=== PATIENT | male | born 1965 | race Hispanic/Latino ===

== ENCOUNTER 2017-08-25 21:52 | Emergency (ER) | payer SELFPAY ==
[~2017-08-25 21:52] MED LIST: ASPI-555 PO; LISI-613 PO; METO50TA9 PO; PRAV20TA4 PO
[2017-08-25] MEDS ORDERED: LISINOPRIL 5 MG TABLET ONE (22:25)
[2017-08-25] MEDS ORDERED: KETOROLAC TROMETHAMINE 30MG/ML ONE (22:25)
[2017-08-25 23:06] LABS: RAPID GROUP A STREP NEGATIVE (NEGATIVE)
== END 2017-08-25 23:29 | disposition home or self-care (01) ==
LOC: EDH 21:52
DX: J11.1 Influenza due to unidentified influenza virus with other respiratory manifestations (principal); I10 Essential (primary) hypertension; E78.5 Hyperlipidemia, unspecified; R19.7 Diarrhea, unspecified; Z88.0 Allergy status to penicillin
CPT/HCPCS: 71046; 87804 ×2; 87880; 96372; 99285; J1885

== ENCOUNTER 2018-06-21 20:06 | Emergency (ER) | payer BC, OTHER ==
[2018-06-21 20:44] LABS: BASOPHILS % (AUTO) 1.2 % (0.0-5.0); EOSINOPHILS % (AUTO) 2.6 % (0.0-8.0); LYMPHOCYTES % (AUTO) 39.2 % (21.0-51.0); MEAN CORPUSCULAR HEMOGLOBIN 29.6 pg (27.0-33.0); MEAN CORPUSCULAR HGB CONC 34.2 g/dL (32.0-36.0); MEAN CORPUSCULAR VOLUME 86.7 fL (79-99); NUCLEATED RED BLOOD CELLS 0.1 % (0.0-0.19); PLATELET COUNT (AUTO) 309 K/uL (130-400); WHITE BLOOD COUNT (AUTO) 8.3 K/uL (4.8-10.8)
[2018-06-21 20:57] LABS: CREATININE 1.3 mg/dL (0.5-1.5); POTASSIUM 3.9 mmol/L (3.5-5.1)
[2018-06-21 21:02] LABS: ALBUMIN 3.8 g/dL (3.5-5.0); BILIRUBIN,TOTAL 0.4 mg/dL (0.2-1.0); TOTAL PROTEIN, SERUM 8.1 g/dL (6.0-8.3)
[2018-06-21] MEDS ORDERED: IPRATROPIUM/ALBUTEROL SULFATE 3 ML SOLUTION IH ONE ×2 (21:08→22:38)
[2018-06-21] MEDS ORDERED: KETOROLAC TROMETHAMINE 15MG/ML ONE (21:58)
== END 2018-06-21 23:58 | disposition home or self-care (01) ==
LOC: EDH 20:06
DX: J20.9 Acute bronchitis, unspecified (principal); I10 Essential (primary) hypertension; E78.5 Hyperlipidemia, unspecified; Z88.0 Allergy status to penicillin; Z98.890 Other specified postprocedural states
CPT/HCPCS: 36415; 71045; 80053; 84484 ×2; 85025; 87804 ×2; 93005 ×2; 94640 ×2; 96374; 99285; J1885

== ENCOUNTER 2022-01-28 22:52 | Emergency (ER) | payer BC, OTHER ==
[~2022-01-28] VITALS: Ht 180.3 cm; Wt 84.8 kg
[~2022-01-28 22:52] MED LIST changes: -ASPI-555 PO; +ASPI-556 PO; -LISI-613 PO; +LISI20TA24 PO
[2022-01-28] MEDS ORDERED: ACETAMINOPHEN 500 MG TABLET ONE (23:07)
[2022-01-28 23:16] LABS: BASOPHILS % (AUTO) 0.2 % (0.0-5.0); EOSINOPHILS % (AUTO) 0.8 % (0.0-8.0); HEMATOCRIT 42.9 % (42-54); LYMPHOCYTES % (AUTO) 9.3 % (21.0-51.0); MEAN CORPUSCULAR HEMOGLOBIN 28.7 pg (27.0-33.0); MEAN CORPUSCULAR VOLUME 84.3 fL (79-99); MONOCYTES % (AUTO) 5.3 % (3.0-13.0); NEUTROPHILS % (AUTO) 83.9 % (40.0-77.0); PLATELET COUNT (AUTO) 219 K/uL (130-400); RED BLOOD CELL COUNT(AUTO) 5.09 MIL/uL (4.50-6.20); RED CELL DISTRIBUTION WIDTH 13.2 % (11.0-15.5); WHITE BLOOD COUNT (AUTO) 13.3 K/uL (4.8-10.8)
[2022-01-28] MEDS ORDERED: ACETAMINOPHEN 500 MG TABLET PO ONE (23:30)
[2022-01-28] MEDS ORDERED: ONDANSETRON 4MG INJ IVP ONE (23:30)
[2022-01-28] MEDS ORDERED: 0.9%NACL 1000ML 1,000 ML IV SCH (23:30)
[2022-01-28 23:34] LABS: CREATININE 1.5 mg/dL (0.5-1.5); POTASSIUM 3.6 mmol/L (3.5-5.1)
[2022-01-28 23:39] LABS: ALBUMIN 3.5 g/dL (3.5-5.0); TOTAL PROTEIN, SERUM 7.5 g/dL (6.0-8.3)
[2022-01-28] MEDS ORDERED: LEVOFLOXACIN 500 MG TABLET PO SCH (23:45)
[2022-01-29] MEDS ORDERED: ONDA4TAB10 PO (00:48)
[2022-01-29] MEDS ORDERED: LOPE2CAP PO (00:48)
[2022-01-29] MEDS ORDERED: IBUP-2071 PO (00:48)
[2022-01-29] MEDS ORDERED: CIPR-278 PO (00:48)
[2022-01-29 00:53] VITALS: BP 122/82
== END 2022-01-29 01:36 | disposition home or self-care (01) ==
LOC: EDH 22:52
DX: B34.9 Viral infection, unspecified (principal); K52.9 Noninfective gastroenteritis and colitis, unspecified; Z20.822 Contact with and (suspected) exposure to COVID-19; E11.9 Type 2 diabetes mellitus without complications; E78.00 Pure hypercholesterolemia, unspecified; I10 Essential (primary) hypertension; Z88.0 Allergy status to penicillin; Z79.82 Long term (current) use of aspirin; Z79.899 Other long term (current) drug therapy; Z98.890 Other specified postprocedural states
CPT/HCPCS: 99284; 96374; 96361; 87635; 84484; 80053; 85025; 87040 ×2; 87804 ×2; 83605; 36415 ×2; 93005; C9803; J7030; J2405

== ENCOUNTER 2022-06-24 01:03 | Emergency (ER) | payer BC, OTHER ==
[~2022-06-24] VITALS: Ht 180.3 cm; Wt 79.4 kg
[~2022-06-24 01:03] MED LIST changes: +CIPR-278 PO; +IBUP-2071 PO; +LOPE2CAP PO; +ONDA4TAB10 PO
[2022-06-24 01:47] LABS: BASOPHILS % (AUTO) 0.7 % (0.0-5.0); EOSINOPHILS % (AUTO) 1.5 % (0.0-8.0); HEMATOCRIT 36.3 % (42-54); LYMPHOCYTES % (AUTO) 52.7 % (21.0-51.0); MEAN CORPUSCULAR HEMOGLOBIN 27.1 pg (27.0-33.0); MEAN CORPUSCULAR HGB CONC 32.8 g/dL (32.0-36.0); MEAN CORPUSCULAR VOLUME 82.7 fL (79-99); MONOCYTES % (AUTO) 7.8 % (3.0-13.0); NEUTROPHILS % (AUTO) 37.1 % (40.0-77.0); PLATELET COUNT (AUTO) 417 K/uL (130-400); RED BLOOD CELL COUNT(AUTO) 4.39 MIL/uL (4.50-6.20); RED CELL DISTRIBUTION WIDTH 13.2 % (11.0-15.5); WHITE BLOOD COUNT (AUTO) 8.4 K/uL (4.8-10.8)
[2022-06-24 01:57] LABS: CREATININE 1.1 mg/dL (0.5-1.5); POTASSIUM 3.9 mmol/L (3.5-5.1)
[2022-06-24 02:01] LABS: ALBUMIN 3.1 g/dL (3.5-5.0); CRP QUANTITATIVE 50.1 mg/L (0.00-9.0); TOTAL PROTEIN, SERUM 8.3 g/dL (6.0-8.3)
[2022-06-24] MEDS ORDERED: HYDROCODONE/ACETAMINOPHEN 5/325 MG TAB PO ONE (03:00)
[2022-06-24] MEDS ORDERED: KETOROLAC 60 MG VIAL (30MG/ML) IM ONE (03:00)
[2022-06-24] MEDS ORDERED: MORPHINE 4 MG SYG IM ONE (04:30)
[2022-06-24] MEDS ORDERED: GABA-529 PO (07:27)
[2022-06-24] MEDS ORDERED: IBUP-2070 PO (07:27)
[2022-06-24] MEDS ORDERED: ACET-2079 PO (07:27)
[2022-06-24 08:25] VITALS: BP 134/78
== END 2022-06-24 08:26 | disposition home or self-care (01) ==
LOC: EDH 01:03
DX: M25.472 Effusion, left ankle (principal); E11.9 Type 2 diabetes mellitus without complications; E78.00 Pure hypercholesterolemia, unspecified; I10 Essential (primary) hypertension; Z79.82 Long term (current) use of aspirin; Z88.0 Allergy status to penicillin; Z79.899 Other long term (current) drug therapy; Z20.822 Contact with and (suspected) exposure to COVID-19
CPT/HCPCS: 99284; 93970; 87635; 83735; 80053; 85025; 87804 ×2; 86140; 36415; 73600 ×2; 73620 ×2; 73562 ×2; 96372; C9803; J2270; J1885

== ENCOUNTER → 2023-05-06 | Outpatient (CLI) | payer OTHER ==
[~2023-05-06] MED LIST changes: +ACET-2079 PO; +GABA-529 PO; +IBUP-2070 PO
== END | disposition home or self-care (01) ==
LOC: OIH 12:58
PROVIDERS: ATTEND Internal Medicine Cardiovascular Disease
DX: Z13.6 Encounter for screening for cardiovascular disorders (principal)
CPT/HCPCS: 75571

== ENCOUNTER 2024-10-12 15:59 | Observation (INO) | payer BC ==
[~2024-10-12] VITALS: Ht 180.3 cm; Wt 81.9 kg
[~2024-10-12 15:59] MED LIST changes: +ONDA-243 PO; -ONDA4TAB10 PO
--- NOTE | 2024-10-12 16:42 | ERN ---
General Chief Complaint: Rectal Bleed Stated Complaint: RECTAL BLOOD Time Seen by MD: 16:02 Source: patient History of Present Illness Initial Comments Patient is a 59-year-old male coming in to be evaluated for lower abdominal pain. Patient states that the pain has been ongoing for two weeks two days ago he started having bloody stools. Allergies: Coded Allergies: Penicillins (Unverified Allergy, Unknown, UNKNOWN, 10/06/15) HAPPENED A CHILD Home Meds Active Scripts Gabapentin (Gabapentin) 100 Mg Capsule, 100 MG PO TID PRN for PAIN, #30 CAP 0 Refills Prov:LUCINA NOLASCO MD 06/24/22 Ibuprofen (Ibuprofen) 600 Mg Tablet, 600 MG PO Q6H PRN for PAIN, #30 TAB 0 Refills Prov:LUCINA NOLASCO MD 06/24/22 Acetaminophen with Codeine (Acetaminophen-Cod #3 Tablet) 1 Each Tablet, 1-2 TAB PO Q4H PRN for PAIN, #20 TAB 0 Refills Prov:LUCINA NOLASCO MD 06/24/22 Loperamide HCl (Loperamide) 2 Mg Capsule, 2 MG PO 5XDAY for diarrhea, #10 CAP 0 Refills Take 2 tablets initially and then 1 tablet with every loose bowel movement. Prov:ESTEPHANIA BIGGS MD 01/29/22 Ondansetron (Ondansetron Odt) 4 Mg Tab.rapdis, 4 MG PO Q6HPRN PRN for nausea, #16 TAB 0 Refills Prov:ESTEPHANIA BIGGS MD 01/29/22 Ibuprofen (Ibuprofen) 800 Mg Tablet, 800 MG PO Q8H PRN for fever, #30 TAB 0 Refills Prov:ESTEPHANIA BIGGS MD 01/29/22 Ciprofloxacin HCl (Cipro) 500 Mg Tablet, 1 TAB PO BID for 10 Days, #20 TAB 0 Refills Prov:ESTEPHANIA BIGGS MD 01/29/22 Aspirin (Aspir 81) 81 Mg Tablet.dr, 81 MG PO DAILY, #100 TAB 12 Refills Prov:AMINA SAMPSON MD 11/07/16 Metoprolol Succinate (Toprol Xl) 50 Mg Tab.er.24h, 50 MG PO DAILY, #30 TAB 1 Refill Prov:AMINA SAMPSON MD 11/07/16 Lisinopril (Lisinopril) 20 Mg Tablet, 20 MG PO DAILY, #30 TAB 1 Refill Prov:AMINA SAMPSON MD 11/07/16 Reported Medications Pravastatin Sodium (Pravastatin Sodium) 20 Mg Tablet, 20 MG PO HS, TAB 11/26/15 Past Medical History Past Medical History: Diabetes-Type II, High Cholesterol, Hypertension Past Surgical History: Other Surgical History Other: NEPHROSTOMY TUBE; URINE STENT ROS Dictation CONSTITUTIONAL: No chills, no fever, no weakness, no diaphoresis, no malaise. HEAD/FACE: No signs of trauma. EENT: No eye pain, no blurred vision, no tearing, no double vision, no ear pain, no ear discharge, no nose pain, no nasal congestion, no throat pain, no throat swelling, no mouth pain. RESPIRATORY: No cough, no orthopnea, no SOB, no stridor, no wheezing. CARDIOVASCULAR: No chest pain, no edema, no palpitations, no syncope. GASTROINTESTINAL/ABDOMINAL: abdominal pain, no constipation, no diarrhea, no nausea, no vomiting. GENITOURINARY: No abnormal discharge, no dysuria, no frequent urination, no hematuria. No complaints of pain in the genitals. MUSCULOSKELETAL: No back pain, no gout, no joint pain, no joint swelling, no muscle pain, no muscle stiffness, no neck pain. INTEGUMENTARY: No change in color, no change in hair/nails, no dryness, no lesion, no lumps, no rash. NEUROLOGICAL/PSYCH: No anxiety, not depressed, no emotional problem, no headache, no numbness, no pre-existing deficit, no history of seizures, no tremors, no weakness. HEMATOLOGIC/LYMPHATIC: Not anemic, no history of blood clots, no apparent bleeding, no bruising, glands not swollen. All Systems Negative, Except as Noted. Physical Exam Physical Exam Dictation VITAL SIGNS: Reviewed. GENERAL APPEARANCE: Alert, oriented x3, no acute distress, obese. HEAD AND FACE: Non-traumatic. EYES: PERRL, pink conjunctivas, eyelid no trauma, anterior chamber clear. EARS: Pinnas intact and no signs of trauma or erythema. Ear canals clear and no discharge. TMs no erythema. NOSE: No discharge, no bleeding. OROPHARYNX: Mouth normal, teeth no caries, tongue pink. Pharynx clear, no erythema. Tonsils no exudates, no abscesses noted. Mucous membrane moist. NECK: Supple, non-tender, no thyromegaly, no masses, no JVD, no bruits. BREAST: Deferred. CHEST: No tenderness, no crepitus, no paradoxical movement, no retractions. LUNGS: Clear, well-ventilated, symmetric, no rales, no wheezing, no rhonchi, no stridor, good breath sounds bilaterally. HEART: Regular rate, regular rhythm, no murmur, no gallops. VASCULAR: No peripheral edema. ABDOMEN: Soft, positive bowel sounds, nondistended, no guarding, nontender, no rebound, no masses no hepatomegaly, no splenomegaly, no Benjamin's sign, no hernias. RECTAL: Deferred. GENITAL: Deferred. NEUROLOGICAL: Normal speech, gross motor function intact, gross sensory function intact. MUSCULOSKELETAL: Neck nontender, full range of motion, back nontender, full range of motion. EXTREMITIES: Nontender, full range of motion. SKIN: Color pink, dry, no turgor, no rash, no lacerations, no abrasions, no contusions. LYMPHATICS: Deferred. Results Laboratory and Microbiology Lab and Micro Result Laboratory Tests Test 10/12/24 16:47 10/12/24 17:04 10/12/24 17:25 White Blood Count 11.4 K/uL (4.8-10.8) H Red Blood Count 5.21 MIL/uL (4.50-6.20) Hemoglobin 14.8 g/dL (14.0-18.0) Hematocrit 44.4 % (42-54) Mean Corpuscular Volume 85.2 fL (79-99) Mean Corpuscular Hemoglobin 28.4 pg (27.0-33.0) Mean Corpuscular Hemoglobin Concent 33.3 g/dL (32.0-36.0) Red Cell Distribution Width 12.9 % (11.0-15.5) Platelet Count 257 K/uL (130-400) Mean Platelet Volume 10.6 fL (7.5-10.5) H Immature Granulocyte % (Auto) 0.2 % (0-1) Neutrophils (%) (Auto) 32.0 % (40.0-77.0) L Lymphocytes (%) (Auto) 58.3 % (21.0-51.0) H Monocytes (%) (Auto) 7.1 % (3.0-13.0) Eosinophils (%) (Auto) 1.7 % (0.0-8.0) Basophils (%) (Auto) 0.7 % (0.0-5.0) Neutrophils # (Auto) 3.6 K/uL (1.8-7.7) Lymphocytes # (Auto) 6.6 K/uL (1.0-4.8) H Monocytes # (Auto) 0.8 K/uL (0.1-1.0) Eosinophils # (Auto) 0.19 K/uL (0.00-0.70) Basophils # (Auto) 0.08 K/uL (0.00-0.20) Absolute Immature Granulocyte (auto 0.02 K/uL (0-1) Segmented Neutrophils % 28 % (40-70) L Band Neutrophils % 2 % (0-2) Lymphocytes % (Manual) 42 % (22-44) Monocytes % (Manual) 3 % (2-9) Eosinophils % (Manual) 1 % (1-6) Nucleated Red Blood Cells 0.0 % (0.0-0.19) Differential Comment MANUAL DIFFERENTIAL Reactive Lymphocytes 24 % (0-0) H White Cell Morphology Comment Platelet Morphology Comment Red Blood Cell Morphology See comments Sodium Level 137 mmol/L (136-145) Potassium Level 3.8 mmol/L (3.5-5.1) Chloride Level 98 mmol/L (101-111) L Carbon Dioxide Level 32 mmol/L (21-32) Blood Urea Nitrogen 21 mg/dL (7-18) H Creatinine 1.2 mg/dL (0.5-1.3) Glomerular Filtration Rate Calc 71 mL/min (>90) Random Glucose 100 mg/dL (70-105) Total Calcium 9.1 mg/dL (8.5-10.1) Urine Color LIGHT-YELLOW (YELLOW) Urine Appearance CLEAR (CLEAR) Urine pH 6.5 (5.0-8.0) Urine Specific [place] 1.032 (1.001-1.031) Urine Protein NEGATIVE mg/dL (NEGATIVE) Urine Glucose (UA) >=1000 mg/dL (NEGATIVE) H Urine Ketones 5 mg/dL (NEGATIVE) H Urine Occult Blood NEGATIVE (NEGATIVE) Urine Nitrate NEGATIVE (NEGATIVE) Urine Bilirubin NEGATIVE mg/dL (NEGATIVE) Urine Urobilinogen 0.2 mg/dL (0.2-1.0) Urine Leukocyte Esterase NEGATIVE Celio/uL Urine RBC None /HPF (0-1) Urine WBC 0-1 /HPF (0-1) Urine Bacteria None /HPF (None Seen) Stool Occult Blood POSITIVE (NEGATIVE) H Labs Reviewed?: Yes EKG/XRAY/US/CT/MRI CT Scan Comment [facility] [address] [place] [address] IMAGING REPORT Signed PATIENT: DANILO BELTRE MR#: [id number] : 1965 SEX: M AGE: 59 LOCATION: [facility] ORDER 55 STATUS: [facility] REPORT#: [id number] SERVICE 54 REASON: lower abd pain ORDERING PHYSICIAN: REBECCA SHERMAN MD PROCEDURE: ABD PEL W - CT ABDOMEN/PELVIS W/CONTRAST CT ABDOMEN WITH CONTRAST. CT PELVIS WITH CONTRAST INDICATION: Lower abdominal pain, nausea, cramping, bright red blood per stool TECHNIQUE: Routine transaxial images using 5 mm slice thickness were obtained after the intravenous infusion of 75 mL of Omnipaque 350 without adverse effects. Oral contrast was not administered. Rectal contrast was not administered. Coronal and sagittal reformatted images acquired for interpretation. CT was performed with one or more of the following dose reduction techniques: Automated exposure control, adjustment of the mA and/or kV according to patient size, or use of iterative reconstruction technique. COMPARISON: None FINDINGS: ABDOMEN: Heart size is normal. Visible lung bases are clear. The liver is normal in size and smooth in contour without lesions or biliary duct dilation. The spleen is normal in size without lesions. The gallbladder appears normal. The pancreas appears normal without pancreatic duct dilation. The adrenal glands appear normal. Right kidney appears normal. 2 mm punctate nonobstructing stones at the lower portion of the left kidney. Cortical nephrograms are symmetric and normal in appearance bilaterally. No evidence for intra-abdominal free air or organized fluid collection. No retrocrural, intraabdominal, or retroperitoneal lymphadenopathy identified. Mild calcific plaque is noted along the abdominal aortic and iliac vessel ramirez without aneurysmal dilation or dissection. Tiny fat-containing nonobstructing umbilical hernia. PELVIS: No evidence for free air or organized pelvic fluid collection. No significant pelvic adenopathy detected. Visualized small and large bowel loops appear unremarkable. Terminal ileum appears normal. The appendix appears normal. The urinary bladder appears unremarkable. Prostate gland measures 5.2 x 3.9 cm. Visible osseous structures are intact. IMPRESSION: Nonobstructing left nephrolithiasis. Tiny fat-containing nonobstructing umbilical hernia. DICTATED BY: MANNY LAM MD DATE: 10/12/241847 ELECTRONICALLY SIGNED BY: MANNY LAM MD DATE: 10/12/241857 MDM MDM: DIFFERENTIAL DIAGNOSIS: GI BLEED, ABDOMINAL DISCOMFORT, RATIONALE: TESTS CONSIDERED AND ORDERED SECONDARY TO SHARED DECISION MAKING INCLUDE: LABS, ECG AND RADIOLOGY PREVIOUS OUTSIDE RECORDS REVIEWED: OLD ER VISITS. RISK OF COMPLICATION AND/OR MORBIDITY OR MORTALITY OF PATIENT MANAGEMENT: NONE MEDICATIONS-PER MEDICATION RECONCILIATION NEED FOR HOSPITALIZATION: PATIENT DOES MEET CRITERIA FOR HOSPITALIZATION. NEED FOR EMERGENCY MAJOR/MINOR SURGERY: NO THERE ARE NO SOCIAL CONCERNS WITH THIS PATIENT. PRESCRIPTION DRUG MANAGEMENT PRESCRIPTIONS WILL INCLUDE SYMPTOMATIC CARE PATIENT'S PRIOR EXTERNAL MEDICAL RECORDS FROM OTHER ER VISITS WERE REVIEWED BY ME INDICATED. PRIOR TESTING AND RESULTS FROM PREVIOUS VISITS WERE REVIEWED. PRIOR TESTS WERE TAKEN INTO ACCOUNT WITH MEDICAL DECISION MAKING AND RESOURCE UTILIZATION, INDEPENDENT HISTORIAN/HISTORIANS WERE USED TO OBTAIN COMPLETE MEDICAL HISTORY. I INDEPENDENTLY INTERPRETED THE TEST THAT WERE PERFORMED, RESULTS WERE REVIEWED BY ME AND CONSIDERED FINDINGS ON RADIOLOGY IF ORDERED. MEDICAL MANAGEMENT AND EXAMINATION INTERPRETATION DISCUSSIONS WERE HAD BY ME WITH OTHER QUALIFIED HEALTHCARE PROFESSIONALS INDICATED FOR THE PATIENT'S CARE. SHE WILL BE ADMITTED UNDER THE CARE OF DR. Cruz FOR ONGOING EVALUATION AND MANAGEMENT OF GI BLEED. ED Course Orders Procedure Category Date Status Time Cbc With Differential LAB 10/12/24 In Process 16:37 Basic Metabolic Panel LAB 10/12/24 Complete 16:37 Urinalysis LAB 10/12/24 Complete W/Microscopic 16:37 Occult Blood Stool LAB 10/12/24 Complete Single Only 16:37 Manual Differential LAB 10/12/24 In Process 16:47 Ct Abdomen/Pelvis CT 10/12/24 Resulted W/Contrast 17:55 Iohexol (Omnipaque) PHA 10/12/24 Complete 18:02 Pantoprazole 40mg Inj PHA 10/12/24 Logged (Protonix 40mg Inj 19:30 Current Medications Medications (Trade) Dose Ordered Sig/Iar Route PRN Reason Start Time Stop Time Status Last Admin Dose Admin Iohexol (Omnipaque) 75 ml STK-MED ONCE IV 10/12/24 18:02 10/12/24 18:03 DC Pantoprazole Sodium (PROTonix 40MG INJ) 80 mg ONCE ONCE IVP 10/12/24 19:30 10/12/24 19:31 UNV Vital Signs Date Time Temp Pulse Resp B/P (MAP) Pulse Ox O2 Delivery O2 Flow Rate FiO2 10/12/24 18:32 98.1 65 18 121/59 98 Room Air* 0 21 10/12/24 18:29 98.1 69 18 133/67 97 Room Air* 0 21 10/12/24 16:01 98.1 69 18 133/67 97 Room Air DX & DISP Disposition: Inpatient Decision to Admit Time: 19:06 Departure Impression: Primary Impression: GI bleed Condition: Stable Referrals: JUMA TRAN MD (PCP) REBECCA SHERMAN MD Oct 12, 2024 16:42
[2024-10-12 16:55] LABS: BASOPHILS # (AUTO) 0.08 K/uL (0.00-0.20); BASOPHILS % (AUTO) 0.7 % (0.0-5.0); EOSINOPHILS # (AUTO) 0.19 K/uL (0.00-0.70); EOSINOPHILS % (AUTO) 1.7 % (0.0-8.0); HEMATOCRIT 44.4 % (42-54); IMMATURE GRANULOCYTE ABSOLUTE 0.02 K/uL (0-1); LYMPHOCYTES # (AUTO) 6.6 K/uL (1.0-4.8); LYMPHOCYTES % (AUTO) 58.3 % (21.0-51.0); MEAN CORPUSCULAR HEMOGLOBIN 28.4 pg (27.0-33.0); MEAN CORPUSCULAR HGB CONC 33.3 g/dL (32.0-36.0); MEAN CORPUSCULAR VOLUME 85.2 fL (79-99); MONOCYTES # (AUTO) 0.8 K/uL (0.1-1.0); MONOCYTES % (AUTO) 7.1 % (3.0-13.0); NEUTROPHILS # (AUTO) 3.6 K/uL (1.8-7.7); PLATELET COUNT (AUTO) 257 K/uL (130-400); RED BLOOD CELL COUNT(AUTO) 5.21 MIL/uL (4.50-6.20); RED CELL DISTRIBUTION WIDTH 12.9 % (11.0-15.5); WHITE BLOOD COUNT (AUTO) 11.4 K/uL (4.8-10.8)
[2024-10-12 17:02] LABS: CREATININE 1.2 mg/dL (0.5-1.3); POTASSIUM 3.8 mmol/L (3.5-5.1)
[2024-10-12 17:13] LABS: APPEARANCE,URINE CLEAR (CLEAR); BILIRUBIN,URINE NEGATIVE (NEGATIVE); COLOR,URINE LIGHT-YELLOW (YELLOW); GLUCOSE, URINE (UA) >=1000 mg/dL (NEGATIVE); KETONES,URINE 5 mg/dL (NEGATIVE); LEUKOCYTE ESTERASE ,URINE NEGATIVE Leu/uL (NEGATIVE); NITRATE,URINE NEGATIVE (NEGATIVE); OCCULT BLOOD,URINE NEGATIVE (NEGATIVE); PH,URINE 6.5 (5.0-8.0); PROTEIN,URINE NEGATIVE (NEGATIVE); UROBILINOGEN,URINE 0.2 mg/dL (0.2-1.0)
[2024-10-12 17:14] LABS: WBC,URINE 0-1 /HPF (0-1)
[2024-10-12 17:27] LABS: BAND NEUTROPHILS % (MANUAL) 2 % (0-2); EOSINOPHILS % (MANUAL) 1 % (1-6); LYMPHOCYTES % (MANUAL) 42 % (22-44); MAN.DIFF COMMENT-IMPRESSION MANUAL DIFFERENTIAL; MONOCYTES % (MANUAL) 3 % (2-9); REACTIVE LYMPHOCYTES 24 % (0-0); SEGMENTED NEUTROPHILS % 28 % (40-70); TOTAL CELLS COUNTED 100
[2024-10-12] MEDS ORDERED: IOHEXOL-350 75 ML VIAL IV ONE (18:02)
--- NOTE | 2024-10-12 18:58 | HMCIMG ---
CT ABDOMEN WITH CONTRAST. CT PELVIS WITH CONTRAST INDICATION: Lower abdominal pain, nausea, cramping, bright red blood per stool TECHNIQUE: Routine transaxial images using 5 mm slice thickness were obtained after the intravenous infusion of 75 mL of Omnipaque 350 without adverse effects. Oral contrast was not administered. Rectal contrast was not administered. Coronal and sagittal reformatted images acquired for interpretation. CT was performed with one or more of the following dose reduction techniques: Automated exposure control, adjustment of the mA and/or kV according to patient size, or use of iterative reconstruction technique. COMPARISON: None FINDINGS: ABDOMEN: Heart size is normal. Visible lung bases are clear. The liver is normal in size and smooth in contour without lesions or biliary duct dilation. The spleen is normal in size without lesions. The gallbladder appears normal. The pancreas appears normal without pancreatic duct dilation. The adrenal glands appear normal. Right kidney appears normal. 2 mm punctate nonobstructing stones at the lower portion of the left kidney. Cortical nephrograms are symmetric and normal in appearance bilaterally. No evidence for intra-abdominal free air or organized fluid collection. No retrocrural, intraabdominal, or retroperitoneal lymphadenopathy identified. Mild calcific plaque is noted along the abdominal aortic and iliac vessel ramirez without aneurysmal dilation or dissection. Tiny fat-containing nonobstructing umbilical hernia. PELVIS: No evidence for free air or organized pelvic fluid collection. No significant pelvic adenopathy detected. Visualized small and large bowel loops appear unremarkable. Terminal ileum appears normal. The appendix appears normal. The urinary bladder appears unremarkable. Prostate gland measures 5.2 x 3.9 cm. Visible osseous structures are intact. IMPRESSION: Nonobstructing left nephrolithiasis. Tiny fat-containing nonobstructing umbilical hernia.
[2024-10-12] MEDS: PANTOPrazole 40 MG/VIAL IVP ONE (20:37)
[2024-10-12] MEDS: acetaMINOPHEN 325 MG TAB PO PRN (20:51)
[2024-10-12] MEDS: acetaMINOPHEN 325 MG TAB ONE (20:53)
[2024-10-12 21:20] VITALS: BP 133/66; PULSE 60; RESP 18; TEMP 97.6; O2SAT 97
[2024-10-12 22:59] LABS: HEMATOCRIT 41.5 % (42-54)
[2024-10-12 23:46] VITALS: BP 111/49; PULSE 59; RESP 17; TEMP 97.7
[2024-10-13] MEDS ORDERED: TIZA-211 PO (01:44)
[2024-10-13] MEDS ORDERED: EMPA25TA PO (01:44)
[2024-10-13] MEDS ORDERED: SEMA1PEN3 SQ (01:44)
[2024-10-13] MEDS ORDERED: HYDR-3422 PO (01:44)
[2024-10-13] MEDS ORDERED: ROSU10TA72 PO (01:44)
[2024-10-13] MEDS ORDERED: GLIPIZIDE (01:44)
[2024-10-13] MEDS ORDERED: TELM1TAB42 PO (01:44)
[2024-10-13 04:00] VITALS: BP 105/53; PULSE 61; RESP 17; TEMP 97.5
[2024-10-13 04:32] LABS: HEMATOCRIT 43.2 % (42-54)
[2024-10-13 08:00] VITALS: BP 112/71; PULSE 78; RESP 18; TEMP 97.3; O2SAT 97
[2024-10-13] MEDS: PANTOPrazole 40 MG/VIAL IVP SCH (08:32)
[2024-10-13] MEDS: hydroCORTISONE 25 MG SUPPOSITORY PR SCH (08:32)
--- NOTE | 2024-10-13 08:58 | CONS ---
GASTROENTEROLOGY CONSULTATION NOTE Date of Consultation: Oct 13, 2024 Time of Consultation: 08:57 History of Present Illness: [ ] Review of Systems: CONSTITUTIONAL: No malaise or change in sensation of wellbeing. ENMT: No rhinorrhea, otorrhea, sinus pain, ear ache. CARDIOVASCULAR: No angina, palpitations, orthopnea or paroxysmal dyspnea. RESPIRATORY: No SOB. GASTROINTESTINAL: No abdominal pain, nausea, vomiting, diarrhea, hematemesis, melena or change in the patient's habitual bowel movements consistency/number. GENITOURINARY: No dysuria, hematuria or change in bladder continence. MUSCULOSKELETAL: No new muscle pain or decrease in muscular strength. No new joint swelling, redness or tenderness. SKIN: No new rash. Past Medical History: [ ] Past Surgical History: [ ] Past Social History: [ ] Family History: [ ] Coded Allergies: Penicillins (Unverified Allergy, Unknown, UNKNOWN, 10/06/15) HAPPENED A CHILD Physical Exam: GEN: Awake, alert, oriented in person, time and place, and in no acute distress. HEENT: No sinus tenderness. Tympanic membranes were not examined. No rhinorrhea. Oral pharyngeal mucosa is pink, moist and within normal limits. Neck is supple with no cervical lymphadenopathy, thyromegaly or JVD. CHEST: Inspection, palpation and percussion of the chest were unremarkable. Lung auscultation revealed normal breath sounds bilaterally. CARDIAC: PMI is within normal limits. Heart sounds are regular. Normal S1, S2. No gallop or murmur. ABD: Soft, non-tender and not distended. No peritoneal signs on palpation. No organomegaly. Normal bowel sounds. EXT: No cyanosis or clubbing. No edema. SKIN: Intact. No rashes. JOINTS: No evidence of synovitis or acute arthritis. NEURO: Alert and oriented to name, place and person. Cranial nerve examination is unremarkable. No focal motor deficits. Normal speech. Gait is normal. Strength is normal. Vital Sign (Last 24 Hours) 10/12/24 10/13/24 21:20 04:00 Temp 97.5 Pulse 61 Resp 17 B/P (MAP) 105/53 Pulse Ox 96 O2 Delivery Room Air O2 Flow Rate 0 FiO2 21 Laboratory: [ ] Laboratory: Test 10/13/24 05:17 10/13/24 04:09 10/12/24 17:25 10/12/24 17:04 Range/Units Whole Blood Glucose 124 H 70-110 MG/DL Hemoglobin 14.5 14.0-18.0 g/dL Hematocrit 43.2 42-54 % Stool Occult Blood POSITIVE H NEGATIVE Urine Color LIGHT-YELLOW YELLOW Urine Appearance CLEAR CLEAR Urine pH 6.5 5.0-8.0 Urine Specific [place] 1.032 H 1.001-1.031 Urine Protein NEGATIVE NEGATIVE mg/dL Urine Glucose (UA) >=1000 H NEGATIVE mg/dL Urine Ketones 5 H NEGATIVE mg/dL Urine Occult Blood NEGATIVE NEGATIVE Urine Nitrate NEGATIVE NEGATIVE Urine Bilirubin NEGATIVE NEGATIVE mg/dL Urine Urobilinogen 0.2 0.2-1.0 mg/dL Urine Leukocyte Esterase NEGATIVE NEGATIVE Celio/uL Urine RBC None 0-1 /HPF Urine WBC 0-1 0-1 /HPF Urine Bacteria None None Seen /HPF Test 10/12/24 16:47 Range/Units White Blood Count 11.4 H 4.8-10.8 K/uL Red Blood Count 5.21 4.50-6.20 MIL/uL Mean Corpuscular Volume 85.2 79-99 fL Mean Corpuscular Hemoglobin 28.4 27.0-33.0 pg Mean Corpuscular Hemoglobin Concent 33.3 32.0-36.0 g/dL Red Cell Distribution Width 12.9 11.0-15.5 % Platelet Count 257 130-400 K/uL Mean Platelet Volume 10.6 H 7.5-10.5 fL Immature Granulocyte % (Auto) 0.2 0-1 % Neutrophils (%) (Auto) 32.0 L 40.0-77.0 % Lymphocytes (%) (Auto) 58.3 H 21.0-51.0 % Monocytes (%) (Auto) 7.1 3.0-13.0 % Eosinophils (%) (Auto) 1.7 0.0-8.0 % Basophils (%) (Auto) 0.7 0.0-5.0 % Neutrophils # (Auto) 3.6 1.8-7.7 K/uL Lymphocytes # (Auto) 6.6 H 1.0-4.8 K/uL Monocytes # (Auto) 0.8 0.1-1.0 K/uL Eosinophils # (Auto) 0.19 0.00-0.70 K/uL Basophils # (Auto) 0.08 0.00-0.20 K/uL Absolute Immature Granulocyte (auto 0.02 0-1 K/uL Segmented Neutrophils % 28 L 40-70 % Band Neutrophils % 2 0-2 % Lymphocytes % (Manual) 42 22-44 % Monocytes % (Manual) 3 2-9 % Eosinophils % (Manual) 1 1-6 % Nucleated Red Blood Cells 0.0 0.0-0.19 % Differential Comment MANUAL DIFFERENTIAL Reactive Lymphocytes 24 H 0-0 % White Cell Morphology Comment Platelet Morphology Comment Red Blood Cell Morphology See comments Sodium Level 137 136-145 mmol/L Potassium Level 3.8 3.5-5.1 mmol/L Chloride Level 98 L 101-111 mmol/L Carbon Dioxide Level 32 21-32 mmol/L Blood Urea Nitrogen 21 H 7-18 mg/dL Creatinine 1.2 0.5-1.3 mg/dL Glomerular Filtration Rate Calc 71 >90 mL/min Random Glucose 100 70-105 mg/dL Total Calcium 9.1 8.5-10.1 mg/dL Current Medications Medications (Trade) Dose Ordered Sig/Ira Route PRN Reason Start Time Stop Time Status Last Admin Dose Admin Acetaminophen (TYLenol 325MG TAB) 650 mg Q6H PRN PO MILD PAIN (1-3) 10/12/24 21:00 11/11/24 20:59 10/12/24 20:51 650 MG Hydrocortisone Acetate (anuSOL-HC 25MG SUPP) 1 supp BID CA 10/13/24 09:00 11/12/24 08:59 10/13/24 08:32 1 SUPP Pantoprazole Sodium (PROTonix 40MG INJ) 40 mg DAILY IVP 10/13/24 09:00 11/12/24 08:59 10/13/24 08:32 40 MG Diagnostics / Radiology: [COPY/PASTE HERE IF NO REPORTS PLEASE DELETE SECTION] Assessment: [ ] Plan: [ ] DOUGIE APODACA [facility] Oct 13, 2024 08:57
[2024-10-13 11:29] LABS: HEMATOCRIT 44.5 % (42-54)
--- NOTE | 2024-10-13 11:51 | NUR ---
DCP -- Home Patient states lives with Ed Richter, Domestic Partner [phone] in a house with three step entrance and walk in shower. 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 States able to complete ADL's on his own. Denies medical devices. Denies home health services, home care provider or dialysis. PCP - Misty Meyers MD Pharmacy - [facility]. Upon discharge, Ed Richter, Domestic Partner [phone] and assist with care, as needed. Addendum: 10/13/24 at 1154 by ROSS STANLEY RN CM Amended: Links added.
[2024-10-13 12:00] VITALS: BP 106/48; PULSE 74; RESP 18; TEMP 97.6
--- NOTE | 2024-10-13 14:09 | NUR ---
DISCHARGE PIV DC'D AND BRACELETS REMOVED. REVIEWED DISCHARGE INSTRUCTIONS AND FOLLOW UP APPOINTMENTS WITH THE PT. ALL QUESTIONS ANSWERED AT THIS TIME. PT LEAVING FACILITY VIA WHEELCHAIR.
--- NOTE | 2024-10-13 17:13 | HP ---
HISTORY OF PRESENT ILLNESS: The patient of Dr. Meyers, came to the Emergency Room complaining of bright red blood per rectum for the last few days. ALLERGIES: HE IS ALLERGIC TO PENICILLIN. CURRENT MEDICATIONS: Gabapentin, ibuprofen, aspirin, metoprolol, lisinopril and pravastatin. PAST MEDICAL HISTORY: Type 2 diabetes, hypertension, dyslipidemia. PAST SURGICAL HISTORY: Status post nephrostomy tube placement. REVIEW OF SYSTEMS: No fever, chills, seizures or loss of consciousness. No diplopia, dysarthria, dysphonia or dysphagia. No chest pain, palpitations or dizziness. No cough, wheeze or rhonchi. No abdominal pain, no nausea, vomiting or diarrhea. No hematemesis, melena or hematuria. No rashes, petechiae or ecchymoses. No dysuria, urgency or frequency. No hallucinations or delusions, no suicidal ideation. PHYSICAL EXAMINATION: GENERAL: He is awake, alert, oriented in person, time, and place, not in distress. VITAL SIGNS: In the chart. HEENT: Normocephalic, atraumatic. PERRLA. [place] and moist oral mucosa. NECK: Supple, no jugular venous dilation, no carotid bruit, no goiter. HEART: S1, S2 are distant. ABDOMEN: Soft, nontender, no masses. EXTREMITIES: No clubbing or cyanosis, no edema. LABORATORY DATA: WBC count 11.4, hemoglobin 14.8, platelets 257. Potassium 3.8, sodium 137, BUN 21, creatinine 1.2. Urinalysis within normal limits. Glucose was more than 1000 mg in urine. Abdominal CT scan was reported as with a known obstructing left nephrolithiasis, prostate gland measuring 5.2 x 3.9. ASSESSMENT AND PLAN: Lower gastrointestinal bleeding. Continue to monitor H and H, transfuse on a p.r.n. basis. Start him on Protonix IV. Have him on IV fluids. Consultation with GI will be made. Continue with his home medications for other comorbidities. Hold all NSAIDs. The patient will be transferred to Dr. Meyers's service. DOS: 10/13/2024 TID: [id number] RECEIPT: [id number] [facility]
--- NOTE | 2024-10-13 22:06 | DS ---
Discharge Summary DIAGNOSE(S): Bright red blood per rectum] HOSPITAL COURSE SUMMARY: [Patient presented with scanty blood treat blood per rectum with no further worsening and stable hematocrit clinically assumed to be possibly hemorrhoidal bleed as it was painless and was advised to use hemorrhoidal suppository 2 times a day for two weeks and follow up as an outpatient for further workup and monitoring serial hematocrit] MILK COLLECTOR(S): [GI] PROCEDURE(S)/TREATMENT(S): [None] PROBLEM(S): [None] FOLLOW-UP TEST(S): [Follow up with CBC in 2-3 days] DISCHARGE INSTRUCTIONS: [Follow up with PCP in 1-2 days] Home Meds Reported Medications [Glipizide] No Conflict Check 10/13/24 Rosuvastatin Calcium (Rosuvastatin Calcium) 10 Mg Tablet, 1 TAB PO HS for 30 Days, #30 TAB 0 Refills 10/13/24 Telmisartan/Hydrochlorothiazid (Telmisartan-Hctz 80-12.5 mg Tb) 80 Mg-12.5 Mg Tablet, 1 TAB PO DAILY for 30 Days, #30 TAB 0 Refills 10/13/24 Tizanidine HCl (Tizanidine HCl) 4 Mg Tablet, 1 TAB PO BID for 30 Days, #60 TAB 0 Refills 10/13/24 Hydroxyzine HCl (Hydroxyzine HCl) 50 Mg Tablet, 1 TAB PO HS for anxiety for 30 Days, #30 TAB 0 Refills 10/13/24 Semaglutide (Ozempic) 1 Mg/0.75 Ml (4 Mg/3 Ml) Pen.injctr, 1 MG SQ QWEEK for 30 Days, #3 ML 0 Refills Q Thursday10/13/24 Empagliflozin (Jardiance) 25 Mg Tablet, 1 TAB PO DAILY for 30 Days, #30 TAB 0 Refills 10/13/24 Discontinued Reported Medications Pravastatin Sodium (Pravastatin Sodium) 20 Mg Tablet, 20 MG PO HS, TAB 11/26/15 Discontinued Scripts Gabapentin (Gabapentin) 100 Mg Capsule, 100 MG PO TID PRN for PAIN, #30 CAP 0 Refills Prov:LUCINA NOLASCO MD 06/24/22 Ibuprofen (Ibuprofen) 600 Mg Tablet, 600 MG PO Q6H PRN for PAIN, #30 TAB 0 Refills Prov:LUCINA NOLASCO MD 06/24/22 Acetaminophen with Codeine (Acetaminophen-Cod #3 Tablet) 1 Each Tablet, 1-2 TAB PO Q4H PRN for PAIN, #20 TAB 0 Refills Prov:LUCINA NOLASCO MD 06/24/22 Loperamide HCl (Loperamide) 2 Mg Capsule, 2 MG PO 5XDAY for diarrhea, #10 CAP 0 Refills Take 2 tablets initially and then 1 tablet with every loose bowel movement. Prov:ESTEPHANIA BIGGS MD 01/29/22 Ondansetron (Ondansetron Odt) 4 Mg Tab.rapdis, 4 MG PO Q6HPRN PRN for nausea, #16 TAB 0 Refills Prov:ESTEPHANIA BIGGS MD 01/29/22 Ibuprofen (Ibuprofen) 800 Mg Tablet, 800 MG PO Q8H PRN for fever, #30 TAB 0 Refills Prov:ESTEPHANIA BIGGS MD 01/29/22 Ciprofloxacin HCl (Cipro) 500 Mg Tablet, 1 TAB PO BID for 10 Days, #20 TAB 0 Refills Prov:ESTEPHANIA BIGGS MD 01/29/22 Aspirin (Aspir 81) 81 Mg Tablet.dr, 81 MG PO DAILY, #100 TAB 12 Refills Prov:AMINA SAMPSON MD 11/07/16 Metoprolol Succinate (Toprol Xl) 50 Mg Tab.er.24h, 50 MG PO DAILY, #30 TAB 1 Refill Prov:AMINA SAMPSON MD 11/07/16 Lisinopril (Lisinopril) 20 Mg Tablet, 20 MG PO DAILY, #30 TAB 1 Refill Prov:AMINA SAMPSON MD 11/07/16 JUMA TRAN MD Oct 13, 2024 22:06
== END 2024-10-13 14:05 | disposition home or self-care (01) ==
LOC: EDH 15:59 → INTOOBSV 20:03 → EDHIP 20:03 → 3AH 21:08
PROVIDERS: ADMIT Internal Medicine; ATTEND Internal Medicine
DX: K62.5 Hemorrhage of anus and rectum (principal); R10.30 Lower abdominal pain, unspecified; N20.0 Calculus of kidney; E11.9 Type 2 diabetes mellitus without complications; I10 Essential (primary) hypertension; E78.5 Hyperlipidemia, unspecified; Z88.0 Allergy status to penicillin; Z98.890 Other specified postprocedural states; Z79.899 Other long term (current) drug therapy
CPT/HCPCS: 96374; 99284; 80048; 85025; 85014 ×3; 85018 ×3; 82270; 81001; 36415 ×2; 74177; 96376; 82948; G0378 ×18; J2470 ×2; Q9967

== ENCOUNTER 2025-01-19 16:50 | Emergency (ER) | payer BC ==
[~2025-01-19] VITALS: Ht 180.3 cm; Wt 82.6 kg
[~2025-01-19 16:50] MED LIST changes: -ACET-2079 PO; -ASPI-556 PO; -CIPR-278 PO; +EMPA25TA PO; -GABA-529 PO; +GLIPIZIDE; +HYDR-3422 PO; -IBUP-2070 PO; -IBUP-2071 PO; -LISI20TA24 PO; -LOPE2CAP PO; -METO50TA9 PO; -ONDA-243 PO; -PRAV20TA4 PO; +ROSU10TA72 PO; +SEMA1PEN3 SQ; +TELM1TAB84 PO; +TIZA-211 PO
--- NOTE | 2025-01-19 18:17 | HMCIMG ---
EXAM: CR right Knee, 3 View. CLINICAL HISTORY: fall COMPARISON: None provided. FINDINGS: BONES: No acute fracture or aggressive appearing osseous lesion. JOINTS: The joint spaces show no significant degenerative disease. There is no joint effusion appreciated. SOFT TISSUES: The soft tissues are unremarkable. IMPRESSION: No acute osseous pathology evident. /[place]
--- NOTE | 2025-01-19 18:52 | ERN ---
ED Note History of Present Illness Stated Complaint: RIGHT KNEE PAIN Chief Complaint: Knee Injury/Swelling Time Seen by MD: 16:51 Time Seen by Midlevel: 16:52 Dictation: 59-year-old male coming in with complaints of right knee pain after ground level fall. Patient states he was feeling the dogs when he tripped and fell. Superficial abrasion to the right knee with ecchymosis. No obvious deformity or abrasion. Allergies: Coded Allergies: Penicillins (Unverified Allergy, Unknown, UNKNOWN, 10/06/15) HAPPENED A CHILD Home Meds Reported Medications [Glipizide] No Conflict Check 10/13/24 Rosuvastatin Calcium (Rosuvastatin Calcium) 10 Mg Tablet, 1 TAB PO HS for 30 Days, #30 TAB 0 Refills 10/13/24 Telmisartan/Hydrochlorothiazid (Telmisartan-Hctz 80-12.5 mg Tb) 80 Mg-12.5 Mg Tablet, 1 TAB PO DAILY for 30 Days, #30 TAB 0 Refills 10/13/24 Tizanidine HCl (Tizanidine HCl) 4 Mg Tablet, 1 TAB PO BID for 30 Days, #60 TAB 0 Refills 10/13/24 Hydroxyzine HCl (Hydroxyzine HCl) 50 Mg Tablet, 1 TAB PO HS for anxiety for 30 Days, #30 TAB 0 Refills 10/13/24 Semaglutide (Ozempic) 1 Mg/0.75 Ml (4 Mg/3 Ml) Pen.injctr, 1 MG SQ QWEEK for 30 Days, #3 ML 0 Refills Q Thursday10/13/24 Empagliflozin (Jardiance) 25 Mg Tablet, 1 TAB PO DAILY for 30 Days, #30 TAB 0 Refills 10/13/24 Past Medical History Past Medical History: Diabetes-Type II, High Cholesterol, Hypertension Surgical History: Other Surgical History Other: RIGHT KIDNEY STENT Review of System Dictation Constitutional: Negative for fever,chills, and weight loss Eyes: Negative for injury, pain,redness, and discharge ENT: Negative for injury,pain or swelling Cardiovascular: Negative for chest pain, palpitations, and edema Respiratory: Negative for shortness of breath, cough, and wheezing, Abdomen/GI: Negative for abdominal pain, nausea, vomiting, diarrhea, and constipation Back: Negative for injury and pain : Negative for injury, bleeding and discharge MS/Extremity: Negative for injury and deformity, complaining of right knee pain Skin: Negative for rash, and discoloration Neuro: Negative for headache, weakness, numbness, tingling, and seizure Psych: Negative for suicide ideation, homicidal ideation, and hallucinations Review of Systems: was completed Initial Vital Sign VS Vital Signs Date Time Temp Pulse Resp B/P (MAP) Pulse Ox O2 Delivery O2 Flow Rate FiO2 01/19/25 16:50 98.1 84 20 165/78 96 Room Air 0 01/19/25 17:10 21 Physical Exam Dictation General: awake, alert, NAD Head/Face: Normocephalic, atraumatic Eyes: PERRL, EOMI, vision at baseline ENT: oral cavity clear, TMs clear, no signs of infection Neck: Trachea midline, supple, no nuchal rigidity Cardiovascular: RRR, normal S1/S2, No MRGs, no JVD Respiratory: CTAB, no respiratory distress, No rales or wheezes Abdomen: Soft, non-tender, non-distended, normal bowel sounds, no guarding or rebound. Skin: Warm, dry, normal turgor, no rash, superficial abrasion to the right knee MS/Extremity: Pulses equal, no cyanosis, neurovascular intact, FROM, no swelling, no deformity Neuro: COAx4, GCS 15, strength 5/5, CN 2-12 intact, normal cerebellar exam, normal gait, Psych: Normal behavior, mood, and affect normal Results (Laboratory/Radiology) X-RAY Comment: [address] [id number] IMAGING REPORT Signed PATIENT: DANILO BELTRE MR#: [id number] : 1965 SEX: M AGE: 59 LOCATION: [facility] ORDER 54 STATUS: REG ER REPORT#: [id number] SERVICE 54 REASON: fall ORDERING PHYSICIAN: CARLY JOYNER NP PROCEDURE: KNEE 3V RT - KNEE 3VWS RT EXAM: CR right Knee, 3 View. CLINICAL HISTORY: fall COMPARISON: None provided. FINDINGS: BONES: No acute fracture or aggressive appearing osseous lesion. JOINTS: The joint spaces show no significant degenerative disease. There is no joint effusion appreciated. SOFT TISSUES: The soft tissues are unremarkable. IMPRESSION: No acute osseous pathology evident. /[place] DICTATED BY: MATTHEW STACY MD DATE: 01/19/251915 ELECTRONICALLY SIGNED BY: MATTHEW STACY MD DATE: 01/19/251915 ED Course ED Course Orders Procedure Category Date Status Time Knee 3vws Rt RAD 01/19/25 Resulted 16:55 Acetaminophen With PHA 01/19/25 Complete Codeine (Tylenol-Code 16:55 Current Medications Medications (Trade) Dose Ordered Sig/Ira Route PRN Reason Start Time Stop Time Status Last Admin Dose Admin Acetaminophen/ Codeine Phosphate (TYLenol-coDEINE TAB) 1 tab ONCE STAT PO 01/19/25 16:55 01/19/25 16:57 DC 01/19/25 17:06 Vital Signs Date Time Temp Pulse Resp B/P (MAP) Pulse Ox O2 Delivery O2 Flow Rate FiO2 01/19/25 17:10 98.1 82 16 160/75 98 Room Air* 0 21 01/19/25 16:50 98.1 84 20 165/78 96 Room Air 0 Medical Decision Making MDM MDM: 59-year-old male coming in with complaints of right knee pain after ground level fall. Patient states he was feeling the dogs when he tripped and fell. Superficial abrasion to the right knee with ecchymosis. No obvious deformity or abrasion. X-ray of the knee shows no acute finding. Discussed findings with the patient. Educated to keep extremity elevated and ice it for help with the swelling. Educated take [id number] Tylenol or Motrin [id number]. Patient verbalized understanding, answered all questions. Differential diagnosis: Knee dislocation, knee contusion, Rationale: Tests considered and ordered secondary to shared decision making include: Previous outside records reviewed: Old ER visits. Risk of complication and/or morbidity or mortality of patient management: None Medications-Per medication reconciliation Need for hospitalization: Patient does not meet criteria for hospitalization. Need for emergency major/minor surgery: No There are no social concerns with this patient. Prescription drug management Prescriptions will include symptomatic care Patient's prior external medical records from other ER visits were reviewed by me as indicated. Prior testing and results from previous visits were reviewed. Prior tests were taken into account with medical decision making and resource utilization, independent historian/historians were used to obtain complete medical history. I independently interpreted the test that were performed, results were reviewed by me and considered findings on radiology if ordered. Medical management and examination interpretation discussions were had by me with other qualified healthcare professionals as indicated for the patient's care. DX & DISP Disposition: Discharge Departure Impression: Primary Impression: Knee contusion Condition: Stable Additional Instructions: Your x-ray shows no broken bones. You can take Tylenol or ibuprofen [id number] for pain control. Keep the extremity elevated and icing it to help with the swelling. Follow up with your primary doctor in 1-2 days. Referrals: JUMA TRAN MD (PCP) Time of Disposition: 18:51 I have reviewed the case, and I agree with, Diagnosis and Plan CARLY JOYNER NP Jan 19, 2025 18:52
[2025-01-19 18:59] VITALS: BP 155/70; PULSE 80; RESP 16; TEMP 98; O2SAT 98
== END 2025-01-19 19:07 | disposition home or self-care (01) ==
LOC: EDH 16:50
DX: S80.01XA Contusion of right knee, initial encounter (principal); E11.9 Type 2 diabetes mellitus without complications; E78.00 Pure hypercholesterolemia, unspecified; I10 Essential (primary) hypertension; Z79.84 Long term (current) use of oral hypoglycemic drugs; Z79.85 Long-term (current) use of injectable non-insulin antidiabetic drugs; Z79.899 Other long term (current) drug therapy; Z88.0 Allergy status to penicillin; W01.0XXA Fall on same level from slipping, tripping and stumbling without subsequent striking against object, initial encounter; Y93.89 Activity, other specified; Y92.89 Other specified places as the place of occurrence of the external cause; Y99.8 Other external cause status
CPT/HCPCS: 73562; 99283